=== PATIENT | male | born 1980 | race Caucasian/White ===

== ENCOUNTER 2018-07-30 14:29 | Emergency (ER) | payer BC ==
[~2018-07-30] VITALS: Ht 172.7 cm; Wt 86.2 kg
[2018-07-30 14:33] VITALS: BP_SYST 123
--- NOTE | 2018-07-30 14:36 | NUR ---
Patient to ER bed 06 to gown for evaluation. Side rails up.
--- NOTE | 2018-07-30 14:40 | NUR ---
Patient comes to ER in personal vehicle accompanied by spouse. Patient is AAOx4, verbal and ambulaory. Patient comes with complaint of N/V/D x1 day. Days he has thrown up 6-7 times today. Says it started yesterday after eating sushi. Patient has a history of colon cancer with some colon removed in 2017. Patient says he is dizzy, weak and has abdominal pain 6/10. No other compaint or injury at this time.
--- NOTE | 2018-07-30 14:43 | NUR ---
DR NYE at bedside for ER evaluation
[2018-07-30] MEDS ORDERED: NACL 0.9% 1,000 ML IV ONE ×2 (15:00→16:15)
[2018-07-30] MEDS ORDERED: ONDANSETRON HCL 4 MG/2 ML VIAL IVP ONE ×2 (15:00→16:15)
[2018-07-30] MEDS ORDERED: MORPHINE 4 MG/ML INJ. SYRINGE IVP ONE ×2 (15:00→16:15)
[2018-07-30] MEDS ORDERED: DICYCLOMINE HCL 20 MG/2 ML AMP IM ONE (15:00)
[2018-07-30] MEDS ORDERED: LOPERAMIDE HCL 2 MG CAPSULE PO ONE (15:00)
[2018-07-30 15:22] LABS: BASOPHILS % (AUTO) 0.1 % (0.0-2.0); EOSINOPHILS % (AUTO) 0.1 % (0.0-4.0); HEMATOCRIT 50.3 % (36-54); LYMPHOCYTES # (AUTO) 0.3 K/uL (1.0-5.5); LYMPHOCYTES % (AUTO) 3.9 % (20.5-51.5); MEAN CORPUSCULAR HEMOGLOBIN 31 pg (27-31); MEAN CORPUSCULAR HGB CONC 34 % (32-36); MEAN CORPUSCULAR VOLUME 91 fL (79.0-98.0); MONOCYTES # (AUTO) 0.2 K/uL (0.0-1.0); MONOCYTES % (AUTO) 3.6 % (1.7-9.3); NEUTROPHILS # (AUTO) 6.2 K/uL (1.8-7.7); NEUTROPHILS % (AUTO) 92.3 % (40.0-70.0); PLATELET COUNT (AUTO) 152 K/uL (130-430); RED BLOOD CELL COUNT(AUTO) 5.52 MIL/uL (4.2-6.2); RED CELL DISTRIBUTION WIDTH 13.8 % (9.0-15.0); WHITE BLOOD COUNT (AUTO) 6.7 K/uL (4.8-10.8)
[2018-07-30 15:33] LABS: CALCIUM 8.7 mg/dL (8.4-11.0); CREATININE 0.99 mg/dL (0.55-1.30); POTASSIUM 3.9 mmol/L (3.5-5.1)
[2018-07-30 15:38] LABS: ALBUMIN 4.2 g/dL (3.4-4.8); TOTAL BILIRUBIN 1.4 mg/dL (0.0-1.0)
--- NOTE | 2018-07-30 16:00 | NUR ---
Medicated per MD orders. IVF infusing with no s/s of infiltration at this time. Will cont to monitor
[2018-07-30 17:56] VITALS: BP_SYST 117
--- NOTE | 2018-07-30 17:57 | NUR ---
Patient given written and verbal discharge instructions and verbalizes understanding. ER MD discussed with patient the results and treatment provided. Patient in stable condition. ID arm band removed. IV catheter removed intact and dressing applied, no active bleeding. Rx of Zofran and Imodium given. Patient educated on pain management and to follow up with PMD. Pain Scale 2/10. Opportunity for questions provided and answered. Medication side effect fact sheet provided.
== END 2018-07-30 17:56 | disposition home or self-care (01) ==
LOC: SED 14:29
DX: T62.8X1A Toxic effect of other specified noxious substances eaten as food, accidental (unintentional), initial encounter (principal); Z85.038 Personal history of other malignant neoplasm of large intestine; Y92.89 Other specified places as the place of occurrence of the external cause
CPT/HCPCS: 36415; 80053; 85025; 96361; 96372; 96374; 96375; 96376; 99283; J0500; J2270; J2405; J7030